=== PATIENT | female | born 1930 | race Two or more races ===

== ENCOUNTER 2017-10-25 13:58 | Inpatient (IN) | payer OTHER ==
[~2017-10-25] VITALS: Ht 61 cm; Wt 5.0 kg
[~2017-10-25 13:58] MED LIST: AVALIDE 150-12.1 TA1 PO; CATAPRES0.1 MG PO; COREG CR10 MG PO; LASIX20 MG PO; LEVAQUIN500 MG PO; MULTI-DAY1 TAB PO; NAMENDA5 MG PO; NORVASC2.5 M1 PO; PLAVIX75 MG PO; TROMBONEX CAPSU1 CAP PO; ULTRACET PO; WELLBUTRIN SR100 MG PO; ZOCOR5 MG PO
[2017-10-30] MEDS ORDERED: LASIX20 MG PO (18:14)
[2017-10-30] MEDS ORDERED: CATAPRES0.1 MG PO (18:14)
[2017-10-30] MEDS ORDERED: ARICEPT10 MG PO (18:14)
[2017-10-30] MEDS ORDERED: CLOPIDOGREL BIS75 MG PO (18:14)
[2017-10-30] MEDS ORDERED: WELLBUTRIN SR100 MG PO (18:14)
[2017-10-30] MEDS ORDERED: AMLODIPINE BESYL5 MG PO (18:14)
[2017-10-30] MEDS ORDERED: Coreg 12.5MG TABLET PO (18:14)
[2017-10-30] MEDS ORDERED: ZOCOR5 MG PO (18:14)
[2017-10-30] MEDS ORDERED: AVAPRO150 MG PO (18:14)
[2017-10-30] MEDS ORDERED: NAMENDA10 MG PO (18:14)
[2017-10-30] MEDS ORDERED: XOPENEX0.63 MG/3 IH (18:14)
[2017-10-30] MEDS ORDERED: CLONIDINE HCL0.2 MG PO (18:14)
[2017-10-30] MEDS ORDERED: TUSSIONEX PENN115 ML PO (18:14)
== END 2017-10-30 18:57 | disposition home or self-care (01) | DRG 439 ==
LOC: ER 13:58 → MEDI 10-26 07:41 → SEC-K 10-26 07:41 → MEDI 10-26 08:55
PROC: 3E0F7GC Introduction of Other Therapeutic Substance into Respiratory Tract, Via Natural or Artificial Opening (ICD-10-PCS; principal; 2017-10-27)
PROC: 3E0336Z Introduction of Nutritional Substance into Peripheral Vein, Percutaneous Approach (ICD-10-PCS; 2017-10-27)
DX: K85.80 Other acute pancreatitis without necrosis or infection (principal); N39.0 Urinary tract infection, site not specified; K52.89 Other specified noninfective gastroenteritis and colitis; G30.8 Other Alzheimer's disease; F02.80 Dementia in other diseases classified elsewhere, unspecified severity, without behavioral disturbance, psychotic disturbance, mood disturbance, and anxiety; I10 Essential (primary) hypertension; K21.9 Gastro-esophageal reflux disease without esophagitis; E86.0 Dehydration; Z88.0 Allergy status to penicillin; B96.20 Unspecified Escherichia coli [E. coli] as the cause of diseases classified elsewhere; R06.02 Shortness of breath; R05 Cough; R33.8 Other retention of urine

== ENCOUNTER 2018-05-24 08:54 | Inpatient (IN) | payer OTHER ==
[~2018-05-24] VITALS: Ht 162.6 cm; Wt 72.6 kg
[~2018-05-24 08:54] MED LIST changes: +AMLODIPINE BESYL5 MG PO; +ARICEPT10 MG PO; +AVAPRO150 MG PO; +CLONIDINE HCL0.2 MG PO; +CLOPIDOGREL BIS75 MG PO; +Coreg 12.5MG TABLET PO; +NAMENDA10 MG PO; +TUSSIONEX PENN115 ML PO; +XOPENEX0.63 MG/3 IH
[2018-05-24] MEDS ORDERED: LEVAQUIN500 MG PO (14:05)
[2018-06-21] MEDS ORDERED: PLAVIX75 MG PO (11:07)
[2018-06-21] MEDS ORDERED: MEGACE ES625 MG/5 M PO (11:07)
[2018-06-21] MEDS ORDERED: DILTIAZEM HCL120 MG PO (11:07)
[2018-06-21] MEDS ORDERED: TROMBONEX CAPS1 EACH PO (11:07)
[2018-06-21] MEDS ORDERED: AVAPRO150 MG PO (11:07)
[2018-06-21] MEDS ORDERED: ARICEPT10 MG PO (11:07)
[2018-06-21] MEDS ORDERED: NAMENDA5 MG PO (11:07)
[2018-06-21] MEDS ORDERED: COREG CR10 MG PO (11:07)
[2018-06-21] MEDS ORDERED: WELLBUTRIN SR100 MG PO (11:07)
[2018-06-21] MEDS ORDERED: XOPENEX0.63 MG/3 IH (11:07)
[2018-06-21] MEDS ORDERED: LASIX20 MG PO (11:07)
[2018-06-21] MEDS ORDERED: NORVASC2.5 M1 PO (11:07)
[2018-06-21] MEDS ORDERED: CLONIDINE HCL0.2 MG PO (11:07)
== END 2018-06-21 15:44 | disposition home health service (06) | DRG 280 ==
LOC: ER 08:54 → MEDI 05-25 08:28 → SEC-K 05-25 08:28 → MEDI 05-25 09:25 → ICU 05-29 12:15 → MEDI 06-09 20:12 → ICU 06-09 20:39 → MEDJ 06-12 12:46
PROC: 3E0F7GC Introduction of Other Therapeutic Substance into Respiratory Tract, Via Natural or Artificial Opening (ICD-10-PCS; principal; 2018-05-25)
PROC: B246ZZZ Ultrasonography of Right and Left Heart (ICD-10-PCS; 2018-05-26)
PROC: 02HV33Z Insertion of Infusion Device into Superior Vena Cava, Percutaneous Approach (ICD-10-PCS; 2018-05-26)
PROC: 3E0436Z Introduction of Nutritional Substance into Central Vein, Percutaneous Approach (ICD-10-PCS; 2018-05-26)
PROC: 4A12X4Z Monitoring of Cardiac Electrical Activity, External Approach (ICD-10-PCS; 2018-05-27)
PROC: 4A033R1 Measurement of Arterial Saturation, Peripheral, Percutaneous Approach (ICD-10-PCS; 2018-05-28)
PROC: 5A09557 Assistance with Respiratory Ventilation, Greater than 96 Consecutive Hours, Continuous Positive Airway Pressure (ICD-10-PCS; 2018-05-28)
PROC: 09JK8ZZ Inspection of Nasal Mucosa and Soft Tissue, Via Natural or Artificial Opening Endoscopic (ICD-10-PCS; 2018-06-08)
PROC: 0CJS8ZZ Inspection of Larynx, Via Natural or Artificial Opening Endoscopic (ICD-10-PCS; 2018-06-08)
PROC: 4A12X4Z Monitoring of Cardiac Electrical Activity, External Approach (ICD-10-PCS; 2018-06-12)
DX: I11.0 Hypertensive heart disease with heart failure (principal); I21.4 Non-ST elevation (NSTEMI) myocardial infarction; J96.01 Acute respiratory failure with hypoxia; N39.0 Urinary tract infection, site not specified; G40.89 Other seizures; B37.0 Candidal stomatitis; B37.49 Other urogenital candidiasis; I50.23 Acute on chronic systolic (congestive) heart failure; J20.9 Acute bronchitis, unspecified; G30.8 Other Alzheimer's disease; F02.80 Dementia in other diseases classified elsewhere, unspecified severity, without behavioral disturbance, psychotic disturbance, mood disturbance, and anxiety; K52.89 Other specified noninfective gastroenteritis and colitis; K21.9 Gastro-esophageal reflux disease without esophagitis; Z86.73 Personal history of transient ischemic attack (TIA), and cerebral infarction without residual deficits; E09.65 Drug or chemical induced diabetes mellitus with hyperglycemia; T38.0X5A Adverse effect of glucocorticoids and synthetic analogues, initial encounter; I34.0 Nonrheumatic mitral (valve) insufficiency; Z88.0 Allergy status to penicillin; B96.29 Other Escherichia coli [E. coli] as the cause of diseases classified elsewhere; I48.0 Paroxysmal atrial fibrillation; Z74.01 Bed confinement status; Z78.1 Physical restraint status; S00.532A Contusion of oral cavity, initial encounter; R13.19 Other dysphagia; R33.8 Other retention of urine

== ENCOUNTER → 2018-11-28 | Emergency (ER) | payer OTHER ==
[~2018-11-28] VITALS: Ht 157.5 cm; Wt 72.6 kg
[~2018-11-28] MED LIST changes: +DILTIAZEM HCL120 MG PO; +MEGACE ES625 MG/5 M PO; +TROMBONEX CAPS1 EACH PO
== END | disposition home or self-care (01) ==
LOC: ER 13:44
DX: R68.89 Other general symptoms and signs (principal); R53.1 Weakness